=== PATIENT | male | born 1960 | race Two or more races ===

== ENCOUNTER → 2020-07-05 | Outpatient (CLI) | payer OTHER ==
[~2020-07-05] MED LIST: GADOTERATE 7.5 MMOL/15ML VIAL. IVP ONE
[2020-07-05 12:20] LABS: ALBUMIN 3.9 g/dL (3.4-5.0); ALBUMIN/GLOBULIN RATIO 1.1 (1.0-1.7); CALCIUM 8.7 mg/dL (8.5-10.1); CREATININE 0.9 mg/dL (0.7-1.3); GFR 85.8; POTASSIUM 3.6 mmol/L (3.5-5.1); TOTAL BILIRUBIN 0.4 mg/dL (0.2-1.0); TOTAL PROTEIN 7.4 g/dL (6.4-8.2)
--- NOTE | 2020-07-05 15:42 | RAD ---
STUDY: MRI of the right upper extremity with and without contrast INDICATION: Right shoulder lipoma. Pain. COMPARISON: None. TECHNIQUE: Multiplanar MR imaging of the right upper extremity/shoulder performed both prior to and a fter the intravenous administration of 15 cc Clariscan. FINDINGS: The shoulder girdle is partially included in the [id number] but the study is not tailored for clos e evaluation of the supporting structures of the shoulder. Large lipoma centered at and extending below the deltopectoral groove with the cephalic vein effaced and draped along the superior and anterior margins of the lipoma. The deep portion of the lipoma abut s the pectoralis major tendon as well as a portion of the biceps muscle. The anteromedial L2 thyroid and lateral margin of the pectoralis are scalloped by the lipoma without adjacent muscular edema or a trophy/fatty infiltration. Collectively the mass extends proximal to distal by 14 cm, transverse by a round 8 cm and measures up to 6 cm in depth. Thin traversing septations without septal or peripheral enhancement. No incidental full-thickness rotator cuff tear is identified. What is seen of the long head biceps te ndon is intact. Unremarkable marrow signal. Impression: Large lipoma without atypical imaging features is centered within and extends well below the deltopec mildred groove and measures up to 14 cm proximal to distal x 8 cm transverse x 6 cm in depth. The cepha lic vein is effaced by the mass and is draped along its superior and anterior margin. The deep margin of the lipoma abuts the pectoralis major tendon and a portion of the biceps muscle. No adjacent musc ular edema or significant atrophy to suggest nerve compression. Note is made that the benignity of a lipoma this size is not able to be fully determined by its imaging appearance alone. Though there are no suspicious features such as septal or nodular enhancement, routine clinical follow-up is needed w ith further imaging if there is a change in size or newly developed/progressing pain. Electronically signed by: INDIO BONE MD (07/05/2020 3:40 PM) [id number]
== END ==
LOC: MRI 11:25
PROVIDERS: ATTEND Nurse Practitioner Family
DX: D17.9 Benign lipomatous neoplasm, unspecified (principal)
CPT/HCPCS: 36415; 73223; 80053; A9575